=== PATIENT | male | born 1955 | race Caucasian/White ===

== ENCOUNTER → 2023-01-01 | Outpatient (CLI) | payer MEDICARE, OTHER | LOC: M WUC 14:31 | PROVIDERS: ATTEND Family Medicine | DX: M25.572 Pain in left ankle and joints of left foot (principal) ==

== ENCOUNTER → 2023-07-28 | Outpatient (CLI) | payer MEDICARE, OTHER | LOC: M RAD 06:59 | PROVIDERS: ATTEND Family Medicine | DX: I71.40 Abdominal aortic aneurysm, without rupture, unspecified (principal) ==

== ENCOUNTER → 2024-05-27 | Outpatient (CLI) | payer MEDICARE, OTHER | LOC: M CARPUL 07:36 | PROVIDERS: ATTEND Registered Nurse | DX: R06.02 Shortness of breath (principal) ==